=== PATIENT | female | born 1980 | race Caucasian/White ===

== ENCOUNTER 2016-06-25 15:56 | Emergency (ER) | payer MEDICAID ==
[2016-06-25 16:59] LABS: BASOPHILS 0.3 % (0.0-2.0); HEMATOCRIT 42.8 % (36.0-48.0); HEMOGLOBIN 14.3 g/dL (12-16); LYMPHOCYTES 27.8 % (15-50); MCH 31.2 pg (26.0-34.0); MCHC 33.4 g/dL (31.0-37.0); MCV 93.4 fL (80.0-100.0); MEAN PLATELET VOLUME 10.6 fL (7.4-10.4); MONOCYTES 14.7 % (2-11); NEUTROPHILS 55.2 % (40-80); PLATELET COUNT 116 10x3/uL (130-400); RBC 4.58 10x6/uL (4.00-5.40); RDW 12.5 % (11.5-14.5); WBC 3.5 10x3/uL (4.8-10.8)
== END 2016-06-25 18:03 | disposition home or self-care (01) ==
LOC: D.ER 15:56
PROVIDERS: Emergency Medicine
DX: J20.9 Acute bronchitis, unspecified (principal); F17.200 Nicotine dependence, unspecified, uncomplicated

== ENCOUNTER 2016-07-13 10:36 | Emergency (ER) | payer SELFPAY ==
[2016-07-13 11:27] LABS: BASOPHILS 0.2 % (0.0-2.0); HEMOGLOBIN 12.6 g/dL (12-16); IMMATURE GRANULOCYTES 0.2 % (0-5); LYMPHOCYTES 28.5 % (15-50); MCH 30.8 pg (26.0-34.0); MCHC 33.2 g/dL (31.0-37.0); MCV 92.9 fL (80.0-100.0); MEAN PLATELET VOLUME 11.1 fL (7.4-10.4); MONOCYTES 7.2 % (2-11); NEUTROPHILS 61.9 % (40-80); PLATELET COUNT 133 10x3/uL (130-400); RBC 4.09 10x6/uL (4.00-5.40); RDW 12.3 % (11.5-14.5); WBC 4.9 10x3/uL (4.8-10.8)
[2016-07-13 11:43] LABS: ALBUMIN 3.3 g/dL (3.4-5.0); ALKALINE PHOSPHATASE 95 U/L (46-116); ALT (SGPT) 43 U/L (10-68); BILIRUBIN - TOTAL 0.26 mg/dL (0.2-1.3); CALC OSMOLALITY 277 mosm/kg (275-300); CALCIUM 8.3 mg/dL (8.5-10.1); CHLORIDE - SERUM 106 mmol/L (98-107); CREATININE - SERUM 0.8 mg/dL (0.6-1.3); GLUCOSE 96 mg/dL (74-106); POTASSIUM - SERUM 3.6 mmol/L (3.5-5.1); PROTEIN - SERUM 6.5 g/dL (6.4-8.2); SODIUM 140 mmol/L (136-145); UREA NITROGEN 10 mg/dL (7-18); eGFR NON AFRICAN AMERICAN 85 mL/min (90-120)
[2016-07-13 11:53] LABS: CKMB 0.9 U/L (0.0-3.6); CREATINE KINASE 113 UL (21-215); TROPONIN-I < 0.017 ng/mL (0.000-0.060)
== END 2016-07-13 12:17 | disposition home or self-care (01) ==
LOC: D.ER 10:36
PROVIDERS: Emergency Medicine
DX: K29.00 Acute gastritis without bleeding (principal); F17.200 Nicotine dependence, unspecified, uncomplicated

== ENCOUNTER 2017-01-02 08:25 | Emergency (ER) | payer SELFPAY ==
[2017-01-02 09:37] LABS: BASOPHILS 0.2 % (0-2); EOSINOPHILS 2.3 % (0-7); HEMATOCRIT 42.1 % (36.0-48.0); HEMOGLOBIN 14.1 g/dL (12-16); LYMPHOCYTES 17.6 % (15-50); MCH 30.5 pg (26.0-34.0); MCHC 33.5 g/dL (31.0-37.0); MCV 91.1 fL (80.0-100.0); MEAN PLATELET VOLUME 10.7 fL (7.4-10.4); NEUTROPHILS 69.9 % (40-80); PLATELET COUNT 148 10x3/uL (130-400); RBC 4.62 10x6/uL (4.00-5.40); RDW 13.4 % (11.5-14.5); WBC 5.1 10x3/uL (4.8-10.8)
[2017-01-02 09:47] LABS: ALBUMIN 3.4 g/dL (3.4-5.0); ALKALINE PHOSPHATASE 68 U/L (46-116); ALT (SGPT) 27 U/L (10-68); BILIRUBIN - TOTAL 0.83 mg/dL (0.2-1.3); CALC OSMOLALITY 273 mosm/kg (275-300); CALCIUM 8.5 mg/dL (8.5-10.1); CARBON DIOXIDE 22.8 mmol/L (21.0-32.0); CHLORIDE - SERUM 104 mmol/L (98-107); CREATININE - SERUM 0.8 mg/dL (0.6-1.3); GLUCOSE 87 mg/dL (74-106); LIPASE 86 U/L (73-393); POTASSIUM - SERUM 3.5 mmol/L (3.5-5.1); PROTEIN - SERUM 7.1 g/dL (6.4-8.2); SODIUM 138 mmol/L (136-145); UREA NITROGEN 11 mg/dL (7-18); eGFR NON AFRICAN AMERICAN 85 mL/min (90-120)
[2017-01-02 11:18] LABS: APPEARANCE CLOUDY (CLEAR); BACTERIA FEW /hpf (NONE SEEN); BILIRUBIN NEGATIVE (NEGATIVE); COLOR DK YELLOW (YELLOW); GLUCOSE NEGATIVE (NEGATIVE); KETONE MODERATE mg/dL (NEGATIVE); LEUKOCYTE ESTERASE TRACE (NEGATIVE); NITRITE NEGATIVE (NEGATIVE); PROTEIN TRACE mg/dL (NEGATIVE); SPECIFIC GRAVITY 1.025 (1.005-1.020); UROBILINOGEN NORMAL (NORMAL)
[2017-01-02 11:19] LABS: MUCUS <1+ /lpf (NONE SEEN); RED CELLS - URINE >50 /hpf (0-5); WHITE CELLS - URINE 0-5 /hpf (0-5)
[2017-01-02 11:34] LABS: HCG URINE NEGATIVE (NEGATIVE)
== END 2017-01-02 12:30 | disposition home or self-care (01) ==
LOC: D.ER 08:25
PROVIDERS: Emergency Medicine
DX: R19.7 Diarrhea, unspecified (principal); K52.9 Noninfective gastroenteritis and colitis, unspecified; F17.200 Nicotine dependence, unspecified, uncomplicated

== ENCOUNTER 2017-08-10 15:49 | Emergency (ER) | payer MEDICAID | END 2017-08-10 17:16 | disposition home or self-care (01) | LOC: D.ER 15:49 | DX: K64.4 Residual hemorrhoidal skin tags (principal); F17.200 Nicotine dependence, unspecified, uncomplicated ==

== ENCOUNTER 2018-06-01 02:25 | Emergency (ER) | payer MEDICAID ==
[~2018-06-01] VITALS: Ht 172.7 cm; Wt 81.8 kg
[2018-06-01 02:29] VITALS: Ht 172.7 cm; Wt 81.8 kg
[2018-06-01] MEDS ORDERED: DICLOFENAC SODI50 MG PO (03:03)
[2018-06-01] MEDS ORDERED: ROBAXIN500 MG PO (03:03)
[2018-06-01 03:41] VITALS: BP 126/77
== END 2018-06-01 03:42 | disposition home or self-care (01) ==
LOC: D.ER 02:25
DX: M79.18 Myalgia, other site (principal); M25.512 Pain in left shoulder; M54.5 Low back pain; F17.200 Nicotine dependence, unspecified, uncomplicated

== ENCOUNTER 2018-06-25 21:56 | Emergency (ER) | payer MEDICAID ==
[~2018-06-25] VITALS: Ht 172.7 cm; Wt 104.5 kg
[~2018-06-25 21:56] MED LIST: DICLOFENAC SODI50 MG PO; ROBAXIN500 MG PO
[2018-06-25 22:00] VITALS: Ht 172.7 cm; Wt 104.5 kg
[2018-06-25 22:28] LABS: APPEARANCE HAZY (CLEAR); BILIRUBIN NEGATIVE (NEGATIVE); COLOR YELLOW (YELLOW); GLUCOSE NEGATIVE (NEGATIVE); KETONE SMALL mg/dL (NEGATIVE); NITRITE NEGATIVE (NEGATIVE); PROTEIN NEGATIVE (NEGATIVE); SPECIFIC GRAVITY 1.015 (1.005-1.020); UROBILINOGEN NORMAL (NORMAL)
[2018-06-25 22:30] LABS: BASOPHILS 0.5 % (0-2); EOSINOPHILS 4.8 % (0-7); HEMATOCRIT 39.5 % (36.0-48.0); IMMATURE GRANULOCYTES 0.1 % (0-5); MCH 29.1 pg (26.0-34.0); MCHC 32.9 g/dL (31.0-37.0); MCV 88.4 fL (80.0-100.0); MEAN PLATELET VOLUME 10.1 fL (7.4-10.4); MONOCYTES 10.6 % (2-11); PLATELET COUNT 162 10x3/uL (130-400); RBC 4.47 10x6/uL (4.00-5.40); RDW 14.3 % (11.5-14.5); WBC 7.3 10x3/uL (4.8-10.8)
[2018-06-25 22:33] LABS: BACTERIA FEW /hpf (NONE SEEN); RED CELLS - URINE 0-5 /hpf (0-5); WHITE CELLS - URINE 25-50 /hpf (0-5)
[2018-06-25 22:38] LABS: ALBUMIN 3.4 g/dL (3.4-5.0); BILIRUBIN - TOTAL 0.54 mg/dL (0.2-1.3); CALCIUM 8.6 mg/dL (8.5-10.1); CARBON DIOXIDE 27.5 mmol/L (21.0-32.0); CREATININE - SERUM 0.9 mg/dL (0.6-1.3); POTASSIUM - SERUM 3.5 mmol/L (3.5-5.1); PROTEIN - SERUM 7.3 g/dL (6.4-8.2)
[2018-06-25] MEDS ORDERED: MEDROL DOSE PACK4 MG PO (22:54)
[2018-06-25] MEDS ORDERED: SULFAMETHOXAZOL1 TA3 PO (22:54)
[2018-06-25 23:24] VITALS: BP 115/64
== END 2018-06-25 23:25 | disposition home or self-care (01) ==
LOC: D.ER 21:56
PROVIDERS: Family Medicine
DX: N39.0 Urinary tract infection, site not specified (principal); J06.9 Acute upper respiratory infection, unspecified

== ENCOUNTER 2019-01-19 19:22 | Emergency (ER) | payer SELFPAY ==
[~2019-01-19] VITALS: Ht 172.7 cm; Wt 106.4 kg
[~2019-01-19 19:22] MED LIST changes: +MEDROL DOSE PACK4 MG PO; +SULFAMETHOXAZOL1 TA3 PO
[2019-01-19 19:57] VITALS: BP 135/85; Ht 172.7 cm; Wt 106.4 kg
[2019-01-19 21:26] LABS: APPEARANCE HAZY (CLEAR); BACTERIA MODERATE /hpf (NEGATIVE); BILIRUBIN NEGATIVE (NEGATIVE); COLOR YELLOW (YELLOW); EPITHELIAL CELLS 0-5 /hpf (0-5); GLUCOSE NEGATIVE (NEGATIVE); KETONE NEGATIVE (NEGATIVE); NITRITE NEGATIVE (NEGATIVE); PROTEIN NEGATIVE (NEGATIVE); RED CELLS - URINE 0-5 /hpf (0-5); SPECIFIC GRAVITY 1.025 (1.005-1.020); UROBILINOGEN NORMAL (NORMAL); WHITE CELLS - URINE 25-50 /hpf (NEGATIVE)
== END 2019-01-19 22:39 | disposition home or self-care (01) ==
LOC: D.ER 19:22
PROVIDERS: Emergency Medicine
DX: Z20.2 Contact with and (suspected) exposure to infections with a predominantly sexual mode of transmission (principal); F17.210 Nicotine dependence, cigarettes, uncomplicated

== ENCOUNTER 2019-02-21 21:15 | Emergency (ER) | payer SELFPAY ==
[~2019-02-21] VITALS: Ht 172.7 cm; Wt 106.4 kg
[2019-02-21 21:19] VITALS: Ht 172.7 cm; Wt 106.4 kg
[2019-02-21] MEDS ORDERED: EC-NAPROSYN500 MG PO (22:44)
[2019-02-21] MEDS ORDERED: ZOFRAN ODT4 MG/UDTAB PO (22:44)
[2019-02-21 23:46] VITALS: BP 122/70
== END 2019-02-21 23:46 | disposition home or self-care (01) ==
LOC: D.ER 21:15
DX: S83.92XA Sprain of unspecified site of left knee, initial encounter (principal); X58.XXXA Exposure to other specified factors, initial encounter; F17.200 Nicotine dependence, unspecified, uncomplicated

== ENCOUNTER 2019-04-18 23:54 | Emergency (ER) | payer SELFPAY ==
[~2019-04-18] VITALS: Ht 172.7 cm; Wt 107.7 kg
[~2019-04-18 23:54] MED LIST changes: +EC-NAPROSYN500 MG PO; +ZOFRAN ODT4 MG/UDTAB PO
[2019-04-18 23:59] VITALS: Ht 172.7 cm; Wt 107.7 kg
[2019-04-19] MEDS ORDERED: VOLTAREN75 MG PO (00:19)
[2019-04-19] MEDS ORDERED: BACLOFEN20 M1 PO (00:19)
[2019-04-19 00:51] VITALS: BP 139/95
== END 2019-04-19 00:51 | disposition home or self-care (01) ==
LOC: D.ER 23:54
DX: M25.512 Pain in left shoulder (principal)